=== PATIENT | female | born 1965 | race Caucasian/White ===

== ENCOUNTER 2017-12-04 13:32 | Inpatient (IN) | payer OTHER ==
[2017-12-04] VITALS (9 sets, daily range): BP systolic 134–170; BP diastolic 83–100
[~2017-12-04] VITALS: Ht 165.1 cm; Wt 88.0 kg
[2017-12-04 14:28] LABS: ABSOLUTE BASOPHIL COUNT 0 /CUMM (0.0-0.2); ABSOLUTE EOSINOPHIL COUNT 0 /CUMM (0.0-0.7); ABSOLUTE GRANULOCYTE CT 4.5 /CUMM (1.4-6.5); ABSOLUTE LYMPH COUNT 0.7 /CUMM (1.2-3.4); ABSOLUTE MONOCYTE COUNT 0.3 /CUMM (0.10-0.60); BASOPHIL % 0.3 % (0.0-2.0); EOSINOPHIL % 0.1 % (0-5); GRANULOCYTE % 82.3 % (42.2-75.2); HEMATOCRIT 45.4 % (37-47); MEAN CORPUSCULAR HGB 29.6 PG (27.0-31.0); MEAN CORPUSCULAR HGB CONC 32.9 G/DL (33.0-37.0); MEAN PLATELET VOLUME 9.5 FL (7.4-10.4); RBC DISTRIBUTION WIDTH 17.6 % (11.5-14.5); RED BLOOD CELL CT 5.05 /CUMM (4.20-5.40); WHITE BLOOD CELL COUNT 5.5 /CUMM (4.8-10.8)
[2017-12-04 14:46] LABS: PLATELET COUNT 104 /CUMM (130-400)
--- NOTE | 2017-12-04 15:01 | ED PSYCHIATRIC COMPLAINT ---
History of Present Illness General Chief Complaint: ETOH/Drug Related Complaint Stated Complaint: SENT BY [address] FOR ALCOHOL DETOX Source: patient Exam Limitations: no limitations Vital Signs & Intake/Output Vital Signs & Intake/Output Vital Signs Date Time Temp Pulse Resp B/P B/P Pulse O2 O2 Flow FiO2 Mean Ox Delivery Rate 12/04 2110 98.2 137 16 154/83 /2109 98.2 137 16 154/83 94 Room Air Room Air 12/04 1950 98.2 125 18 149/93 / 1950 98.1 128 18 149/93 96 Room Air Room Air 12/04 1931 98.2 128 18 159/100 04/ 1929 98.0 128 18 159/100 95 Room Air Room Air 12/04 1857 131 04/06 1836 98.2 158 18 139/86 04/ 1834 98.2 158 18 139/86 04/06 1819 97.5 158 18 139/86 95 04/06 1635 97.9 126 18 149/96 97 Room Air Room Air 12/04 1633 97.9 126 18 149/96 04/ 1530 98.8 122 20 134/94 04/06 1527 122 22 134/94 95 Room Air Room Air 04/ 1423 99.2 134 20 170/100 04/06 1405 99.2 130 20 151/108 97 Room Air Allergies Coded Allergies: No Known Allergies (12/04/17) Reconcile Medications Amlodipine Besylate 5 MG TABLET 1 TAB PO DAILY HEART (Reported) Triage Note: PT TO ED FOR ETOH DETOX, SUPPOSED TO GO TO [facility]. LAST DRINK YESTERDAY AT 2100 "DRANK A 5TH OF VODKA FROM [id number]" DENIES HX OF ETOH WITHDRAWAL SEIZURES. LAST ETOH DETOX IN MARCH OF 2017 AT [facility]. PT REPORTS +NAUSEA AND HEADACHE. MANUAL BP 170/100 IN TRIAGE. +TREMULOUS IN TRIAGE. Triage Nurses Notes Reviewed? yes HPI: Patient presents for evaluation of alcohol withdrawal symptoms. Patient states that she was trying to get into a residential detox program but was referred to the emergency department for acute withdrawal symptoms. Patient states she stopped drinking alcohol yesterday (she generally drinks 1 pint of vodka daily). She is currently feeling very shaky and a bit anxious. Last detox was last March. She states since then she has been through a divorce and the loss of her daughter so she began drinking again. She denies withdrawal seizures cigarette smoking or drug abuse. (Vesta CASTELLANO,Jose Antonio Cantu) Past History Travel History Traveled to [place] past 21 day No Medical History Neurological: NONE EENT: NONE Cardiovascular: hypertension Respiratory: NONE Gastrointestinal: NONE Hepatic: NONE Renal: NONE Musculoskeletal: NONE Psychiatric: alcohol dependence Endocrine: NONE Psychosocial History What is your primary language [place] Tobacco Use: Quit >30 days ago ETOH Use: alcoholic (Vesta CASTELLANO,Jose Antonio Cantu) Medical History Any Pertinent Medical History? see below for history Surgical History Surgical History: non-contributory Family History Hx Contributory? No (Ochoa Bonilla MD) Review of Systems Review of Systems Constitutional: Denies: see HPI. (Ochoa Bonilla MD) Physical Exam Physical Exam General Appearance: SEE BELOW Neurological/Psychiatric: SEE BELOW Comments: General: Alert, calm, cooperative Head: Normocephalic, atraumatic Eyes: Normal inspection, no nystagmus, EOMI Ears: Normal inspection Nose: Normal inspection Throat: Moist mucosa Neck: Supple, no goiter Heart: Regular rate and rhythm, no murmurs rubs or gallops Lungs: Clear to auscultation bilaterally with good air entry Abdomen: Soft nontender nondistended, normal bowel sounds Chest: Nontender Extremities: Normal range of motion grossly, moderate tremors present, no cyanosis clubbing or edema of the upper extremities Neurologic: cranial nerves II through XII grossly intact, speech clear, gait normal Psychiatric: No apparent delusions or hallucinations, no pressured speech or thought blocking (Jose Antonio Lemons MD) SAD PERSONS Done? patient not suicidal (Chad CASTELLANO,Ochoa Vick) Progress Differential Diagnosis: drug withdrawal, aLCOHOL WITHDRAWAL, ELECTROLYTE ABNORMALITY, ACIDOSIS, DEHYDRATION Plan of Care: Orders Procedure Date/time Status Regular Diet 12/05 B Active Patient Data 12/04 210 Active Misc Message 12/04 2006 Active ED Holding Orders 12/04 2006 Active Admit to inpatient 12/04 2006 Active Vital Signs 12/04 2006 Active Code Status 12/04 2006 Active Pathway - chart 12/04 1820 Active CIWA 12/04 1820 Active Intake & Output 12/04 1527 Active URINE DRUG SCREEN FOR ER ONLY 12/04 1509 Complete URINALYSIS 12/04 1412 Complete ETHANOL 12/04 1412 Complete COMPREHENSIVE METABOLIC PANEL 12/04 1412 Complete CBC WITHOUT DIFFERENTIAL 12/04 141 Complete Current Medications Sig/Antonia Start time Last Medication Dose Stop Time Status Admin Lorazepam 2 MG Q2P PRN 12/04 1829 AC (Ativan) Lorazepam 1 MG Q2P PRN 12/04 1829 AC (Ativan) Laboratory Tests 12/04/17 1824: Urine Opiates Screen < 100, Methadone Screen < 40, Barbiturate Screen < 60, Ur Phencyclidine Scrn < 6.00, Amphetamines Screen < 100, U Benzodiazepines Scrn < 85, Urine Cocaine Screen < 50, Urine Cannabis Screen < 5.00, Urine Color YEL, Urine Clarity CLEAR, Urine pH 7.0, Ur Specific [place] 1.010, Urine Protein NEG, Urine Ketones 15 H, Urine Nitrite NEG, Urine Bilirubin NEG, Urine Urobilinogen 0.2, Ur Leukocyte Esterase NEG, Ur Microscopic SEDIMENT EXAMINED, Urine RBC 3-5, Urine WBC RARE, Ur Epithelial Cells MOD H, Urine Hemoglobin TRACE-INTACT, Urine Glucose NEG 12/04/17 1420: Anion Gap 24 H, Estimated GFR > 60, BUN/Creatinine Ratio 14.0, Glucose 134 H, Calcium 10.1, Total Bilirubin 1.5 H, AST 67 H, ALT 51, Alkaline Phosphatase 89 , Total Protein 8.5 H, Albumin 5.2 H, Globulin 3.3, Albumin/Globulin Ratio 1.6 , CBC w Diff NO MAN DIFF REQ, RBC 5.05, MCV 90.0, MCH 29.6, MCHC 32.9 L, RDW 17.6 H, MPV 9.5, Gran % 82.3 H, Lymphocytes % 12.7 L, Monocytes % 4.6, Eosinophils % 0.1, Basophils % 0.3, Absolute Granulocytes 4.5, Absolute Lymphocytes 0.7 L, Absolute Monocytes 0.3, Absolute Eosinophils 0, Absolute Basophils 0, Serum Alcohol 51.0 Comments: 12/04/2017 6:31:01 PM I have updated Sabina on her test results and we are awaiting insurance authorization. Fortunately she has become more tachycardic since her arrival despite Ativan. The patient herself however states that she feels much better with less shaking and an improved appetite (she ate meal here in the emergency department and commented it was the first real meal she's had in a while). Patient appears to be in a sinus tachycardia on the monitor although I have also entertained the possibility of an SVT or rapid atrial fibrillation with a 2:1 block. I have ordered another liter of fluid and 2 more milligrams of Ativan and if the patient's heart rate does not respond I will consider adenosine. 12/04/2017 7:41:27 PM Ap's heart rate has responded to IV Ativan and IV fluids. (Vesta CASTELLANO,Jose Antonio Cantu) Departure Departure Disposition: STILL A PATIENT Condition: Stable Clinical Impression Primary Impression: Alcohol withdrawal syndrome Qualifiers: Complication of substance-induced condition: uncomplicated Qualified Code: F10.230 - Alcohol dependence with withdrawal, uncomplicated Referrals: Patient Has No Primary Care Dr (PCP/Family) Departure Forms: Customer Survey General Discharge Information Admission Note Spoke With: Flaquita Ledezma MD Documentation of Exam: Documentation of any treatments & extenuating circumstances including Concerns Regarding Discharge (functional status, medication knowledge or non-compliance, living conditions, etc.) that warrant an admission rather than observation: pt presents in acute alcohol withdrawal. Her alcohol withdrawal places her at high risk of seizures and delirium tremens and . She has also been persistently tachycardic and hypertensive making her very poor candidate for outpatient management. She likely return and worsen her condition. She requires IV Ativan and close monitoring of vital signs (including continuous cardiac monitoring) and her overall clinical condition. Patient's Ativan dosage should be adjusted according to her clinical condition vital signs and CIWA score. She will be at risk of alcohol withdrawal seizures or delirium tremens in the next 3-5 days. She will require a multi-day hospitalization. (Vesta CASTELLANO,Jose Antonio Cantu) Departure Comments pt cleared by case management for admission. (Chad CASTELLANO,Ochoa Vick) Critical Care Note Critical Care Note Critical Care Time: 30-74 min (Jose Antonio Lemons MD)
[2017-12-04] MEDS ORDERED: AMLODIPINE BESYL5 M1 PO (15:11)
--- NOTE | 2017-12-04 22:12 | History & Physical ---
Jing Helton 12/04/17 2211: General Information and HPI MD Statement: I have seen and personally examined LUCI SALVADOR and documented this H&P. The patient is a 52 year old F who presented with a patient stated chief complaint of [ requesting alcohol detox]. Source of Information: patient Exam Limitations: no limitations History of Present Illness: 52-year-old female with a past medical history of hypertension, alcohol dependence presents to the ED after she was sent to [facility] for alcohol detox. According to the patient she has been sober since her last detox in March 2017 for almost 4 months stating that around [place] time she relapsed. She states that she has had issues with her ex- as well as her daughter which is why she became more anxious and depressed utilizing alcohol to help her sleep. She states she drinks about a pint of vodka about 4-5 nights every week. She states that her last drink was yesterday. She also endorses having no heating in her house and that she currently sold her house and is moving to a smaller apartment. She states it was not until this morning when she when she called [facility] requesting detoxification and was advised to go to the ER. Patient endorses shaking and very bad tremors as well as nausea to the point that she was not able to keep anything down since yesterday. She denies any hallucinations. She denies any past history of alcohol withdrawal seizures, ICU admissions, or having ended up getting intubated. 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 She denies any suicidal ideation or homicidal ideation however requests to see a psychiatrist. She denies any other recreational drug use. Of note she states she has never really smoked except maybe as a teenager. The past 6 months have been emotionally stressful for the patient given that her ex- has moved out together with their daughter. She has also sold her house, and is moving into a new apartment. Allergies/Medications Allergies: Coded Allergies: No Known Allergies (12/04/17) Home Med list Amlodipine Besylate 5 MG TABLET 1 TAB PO DAILY HEART (Reported) Compliance With Home Meds: UNKNOWN Past History Travel History Traveled to [place] past 21 day No Medical History Neurological: NONE EENT: NONE Cardiovascular: hypertension Respiratory: NONE Gastrointestinal: NONE Hepatic: NONE Renal: NONE Musculoskeletal: NONE Psychiatric: alcohol dependence Endocrine: NONE Surgical History Surgical History: non-contributory, (12 years ago) Past Family/Social History Family History Relations & Conditions if any MOTHER FH: aortic aneurysm FATHER FH: hypercholesterolemia Psychosocial History Where do you live? Home Who Do You Live With? self Smoking Status: Former Smoker ETOH Use: heavy use, alcoholic Illicit Drug Use: denies illicit drug use Functional Ability ADLs Independent: dressing, eating, toileting, bathing. Ambulation: independent IADLs Independent: shopping, housework, finances, food prep, telephone, transportation , medication admin. 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 Denies: fever, malaise, weakness. EENTM: Denies: visual changes. Cardiovascular: Denies: chest pain, edema, orthopena, palpitations, syncope. Respiratory: Denies: cough, orthopnea, short of breath, wheezing. GI: Denies: abdominal pain, constipation, diarrhea, nausea, vomiting. Genitourinary: Reports: no symptoms. Musculoskeletal: Denies: back pain. Neurological/Psychological: Reports: tremors. Denies: headache, numbness, tingling, weakness. Exam & Diagnostic Data Last 24 Hrs of Vital Signs/I&O Vital Signs Date Time Temp Pulse Resp B/P B/P Pulse O2 O2 Flow FiO2 Mean Ox Delivery Rate 12/05 0203 109 18 153/99 12/05 0151 98.4 109 20 153/99 12/05 0030 93 12/05 0019 128 18 159/99 12/04 2356 128 18 159/99 12/04 2352 128 18 159/99 96 Room Air 12/04 2233 98.0 136 18 150/94 12/04 2232 98.0 126 18 150/94 97 Room Air Room Air 12/041 98.2 137 16 154/83 12/040 98.2 137 16 154/83 94 Room Air Room Air 12/04 1950 98.2 125 18 149/93 12/04 1950 98.1 128 18 149/93 96 Room Air Room Air 12/04 1931 98.2 128 18 159/100 12/04 1929 98.0 128 18 159/100 95 Room Air Room Air 12/04 1857 131 12/04 1836 98.2 158 18 139/86 12/04 1834 98.2 158 18 139/86 12/04 1819 97.5 158 18 139/86 95 12/04 1635 97.9 126 18 149/96 97 Room Air Room Air 12/04 1633 97.9 126 18 149/96 12/04 1530 98.8 122 20 134/94 12/04 1527 122 22 134/94 95 Room Air Room Air 12/04 1423 99.2 134 20 170/100 12/04 1405 99.2 130 20 151/108 97 Room Air Intake & Output 12/05 0800 04 0000 12/04 1600 Intake Total 1000 1000 Output Total Balance 1000 1000 Intake, IV 1000 1000 Patient 150 lb Weight Weight Reported by Patient Measurement Method Physical Exam General Appearance Alert, Oriented X3, Cooperative, No Acute Distress Skin No Rashes Sepsis Skin Exam (color): Flushed HEENT Atraumatic, PERRLA, EOMI, dry mucous membranes Neck Supple, No JVD, No thryomegaly, No LAD Cardiovascular Normal S1, Normal S2, No Murmurs, sinus tachycardia Lungs Clear to Auscultation, Normal Air Movement Abdomen Normal Bowel Sounds, Soft, No Tenderness Neurological Normal Speech, Strength at 5/5 X4 Ext, tremors - slight Extremities No Edema, Normal Pulses Vascular Normal Pulses, Pulses Symmetrical Last 24 Hrs of Labs/Juan: Laboratory Tests 12/04/17 1824: Urine Opiates Screen < 100, Methadone Screen < 40, Barbiturate Screen < 60, Ur Phencyclidine Scrn < 6.00, Amphetamines Screen < 100, U Benzodiazepines Scrn < 85, Urine Cocaine Screen < 50, Urine Cannabis Screen < 5.00, Urine Color YEL, Urine Clarity CLEAR, Urine pH 7.0, Ur Specific [place] 1.010, Urine Protein NEG, Urine Ketones 15 H, Urine Nitrite NEG, Urine Bilirubin NEG, Urine Urobilinogen 0.2, Ur Leukocyte Esterase NEG, Ur Microscopic SEDIMENT EXAMINED, Urine RBC 3-5, Urine WBC RARE, Ur Epithelial Cells MOD H, Urine Hemoglobin TRACE-INTACT, Urine Glucose NEG 12/04/17 1420: Anion Gap 24 H, Estimated GFR > 60, BUN/Creatinine Ratio 14.0, Glucose 134 H, Calcium 10.1, Phosphorus 2.4 L, Magnesium 1.0 L, Total Bilirubin 1.5 H, Direct Bilirubin 0.6 H, AST 67 H, ALT 51, Alkaline Phosphatase 89, Total Protein 8.5 H, Albumin 5.2 H, Globulin 3.3, Albumin/Globulin Ratio 1.6, CBC w Diff NO MAN DIFF REQ, RBC 5.05, MCV 90.0, MCH 29.6, MCHC 32.9 L, RDW 17.6 H, MPV 9.5, Gran % 82.3 H, Lymphocytes % 12.7 L, Monocytes % 4.6, Eosinophils % 0.1, Basophils % 0.3, Absolute Granulocytes 4.5, Absolute Lymphocytes 0.7 L, Absolute Monocytes 0.3, Absolute Eosinophils 0, Absolute Basophils 0, Serum Alcohol 51.0 Assessment/Plan Assessment: 52-year-old female with a past medical history hypertension and alcohol dependence who presented to the ER from [facility] for acute withdrawal symptoms. Apparently patient stopped drinking alcohol yesterday she usually drinks about up and walk on a daily basis. Her last detox was in March 2017. Vitals at the time of admission blood pressure 150/94, respiratory rate of 18, pulse 126, afebrile saturating 97% on room air. Labs pertinent for normal white blood cell count of 5500, H&H 14.9/45.4, MCV of 90, platelet count of 104,000. Serum chemistries pertinent for sodium of 138, potassium of 3.0, bicarb of 21, anion gap of 24, BUN 7 with a creatinine of 0.5 and serum glucose of 134. Total bili was 1.5. LFTs pertinent for AST/ALT of 67 /51, alk phos of 89. U tox pertinent for serum alcohol of 51. UA pertinent for ketonuria, moderate amount of epithelial cells. In the ER patient received lorazepam 2 mg IV 4 as he CIWA was 19; Zofran 4 mg IV 1, K-Dur 40 mEq once p.o. and normal saline 1000 mL bolused IV 1. Admit patient to general medicine for alcohol withdrawal. #Alcohol detoxification Ativan 2 mg p.o. every 6 and Ativan per ciwa Psych and social work consult in a.m. Maintained on banana bag for now and switch to p.o. thiamine, folic acid and multivitamin within the next 24-48 hours #Sinus tachycardia Will start on clonidine 0.1 mg twice daily to control tachycardia and hypertension related to alcohol withdrawal #Hypertension Continue on amlodipine 5 mg daily #Thrombocytopenia Most likely secondary to alcoholism #Hypokalemia Replete with 40 mg of K-Caroline Follow potassium in a.m. #Hypomagnesemia Most likely secondary to alcoholism Replete with 2 g of IV mag sulfate #Hypophosphatemia Secondary to alcoholism Replete phosphate and follow-up labs in a.m. -Diet Heart healthy DVT prophylaxis On Alps given thrombocytopenia CODE STATUS Full As Ranked By This Provider Problem List: 1. Alcohol withdrawal syndrome Qualifiers Complication of substance-induced condition: uncomplicated Qualified Code: F10.230 - Alcohol dependence with withdrawal, uncomplicated Core Measures/Misc (05/17) Acute Coronary Syndrome ACS Diagnosis: No Congestive Heart Failure Congestive Heart Failure Diagnosis No Cerebrovascular Accident CVA/TIA Diagnosis: No VTE (View Protocol) VTE Risk Factors Age>40 No Mechanical VTE Prophylaxis d/t N/A MechProphylax Ordered No VTE Pharm Prophylaxis d/t Platelets below ref range Sepsis (View protocol) Sepsis Present: No Resident Review Statement Resident Statement: ADMITTED BY RESIDENT Flaquita Ledezma 12/05/17 0547: Attending MD Review Statement Attending Statement Attending MD Statement: examined this patient, discuss w/resident/PA/NETWORK RELAY TESTER, agreed w/resident/PA/NETWORK RELAY TESTER, reviewed EMR data (avail), reviewed images, amended to note Attending Assessment/Plan: CC: Alcohol detox PMH: HTN, alcoholism Patient came to ER requesting alcohol detox. She has going through some marital trouble, from for now, drinks fifth of vodka 4-5 days per week , family suggested her detox, she went to [facility] from where she was referred to ER for detox. She had several detox in the past, no history of withdrawal seizure, no history of severe DTs, never hospitalized in ICU. Last detox March 2017 in [facility]. Relapsed Christmastime again. Complete ROS unremarkable Vitals: Afebrile, tachycardic up to 150s in ER that gradually improved, RR 18, blood pressure 149/96, saturating 97% on room air. On exam: A O 3, cooperative, no acute distress, neck supple, JVD normal, no lymphadenopathy, mild diaphoresis, mild tremors, not hallucinating, mucosa moist , no focal neurological deficit, no dependent edema, no obvious skin rashes or inflammation CVS: S1-S2, RRR. RS: Clear to auscultate bilaterally. Abdomen: Soft , NT, ND, bowel sounds present. Assessment and plan 52-year-old female with past medical history significant for hypertension, depression presented in ER for all called detox. Complete examination unremarkable, she was significantly tachycardic in ER. ECG showed sinus tachycardia. Patient states that she was tachycardic in the previous detox as well. Currently not on any medications for the same. In ER her CIWA scores were up to 19, now gradually improving with Ativan. We will start clonidine for her tachycardia and hypertension along with Ativan and other supportive care. If persistently remains tachycardic even with treatment then consider telemetry floor. + Alcohol detox + Sinus tachycardia - Admit to General medicine - Continue scheduled Ativan PO 2 milligram every - Continue when necessary Ativan according to CINY protocol - High-dose thiamine - PO folic acid - Check magnesium and phosphorus, today and tomorrow, replace if low - Start clonidine, restart amlodipine from tomorrow if blood pressure stable - DVT prophylaxis - Adequate pain control - Psych consult - house worker general consult
[2017-12-05] VITALS (9 sets, daily range): BP systolic 130–153; BP diastolic 80–99
--- NOTE | 2017-12-05 05:39 | PN- Housestaff ---
Subjective Follow-up For: - Alcohol detox - HTN - Sinus tachycardia Objective Last 24 Hrs of Vital Signs/I&O Vital Signs Date Time Temp Pulse Resp B/P B/P Pulse O2 O2 Flow FiO2 Mean Ox Delivery Rate 12/05 0243 98.1 91 20 150/98 97 Room Air 04 0203 109 18 153/99 04/07 0151 98.4 109 20 153/99 04/07 0030 93 04/07 0019 128 18 159/99 04/ 2356 128 18 159/99 04/06 2352 128 18 159/99 96 Room Air 04/ 2233 98.0 136 18 150/94 04/ 2232 98.0 126 18 150/94 97 Room Air Room Air 12/04 2111 98.2 137 16 154/83 04/06 2110 98.2 137 16 154/83 94 Room Air Room Air 12/04 1950 98.2 125 18 149/93 04/ 1950 98.1 128 18 149/93 96 Room Air Room Air / 1931 98.2 128 18 159/100 04/ 1929 98.0 128 18 159/100 95 Room Air Room Air 04/ 1857 131 04/ 1836 98.2 158 18 139/86 04/06 1834 98.2 158 18 139/86 04/06 1819 97.5 158 18 139/86 95 04/06 1635 97.9 126 18 149/96 97 Room Air Room Air 04/ 1633 97.9 126 18 149/96 04/06 1530 98.8 122 20 134/94 04/06 1527 122 22 134/94 95 Room Air Room Air / 1423 99.2 134 20 170/100 04/06 1405 99.2 130 20 151/108 97 Room Air Intake & Output 12/05 0800 04/07 0000 06 1600 Intake Total 1000 1000 Output Total Balance 1000 1000 Intake, IV 1000 1000 Patient 150 lb Weight Weight Reported by Patient Measurement Method Current Medications: Current Medications Sig/Antonia Start time Last Medication Dose Route Stop Time Status Admin Amlodipine Besylate 5 MG DAILY 12/05 1000 AC PO Amlodipine Besylate 0 .STK-MED ONE 12/04 1845 DC PO Amlodipine Besylate 5 MG ONCE ONE 12/04 1830 DC 12/04 PO 12/04 183 183 Clonidine 0 .STK-MED ONE 12/05 0024 DC PO Clonidine 0.1 MG BID 12/05 0015 AC 12/05 PO 0019 Cyanocobalamin/ 1 BAG DAILY 12/05 1000 AC Thiamine/Pyridoxine IV 12/07 1759 Dextrose/Water 1,000 ML Folic Acid 1 MG DAILY 12/05 1000 DC PO 12/07 1001 Lorazepam 2 MG Q6 12/05 0600 AC PO Lorazepam 2 MG Q6 12/04 2359 DC 12/04 PO 12/05 0001 2347 Lorazepam 0 .STK-MED ONE 12/04 2342 DC PO Lorazepam 0 Q1P PRN 12/04 2315 AC IV Lorazepam 0 .STK-MED ONE 12/04 1950 DC .ROUTE Lorazepam 2 MG ONE ONE 12/04 1945 DC 12/04 IV 12/04 1946 1948 Lorazepam 2 MG ONE ONE 12/04 1830 DC 04 IV 12/04 1831 1836 Lorazepam 2 MG Q2P PRN 12/04 1830 DC IV Lorazepam 1 MG Q2P PRN 12/04 1830 DC IV Lorazepam 0 .STK-MED ONE 12/04 1827 DC .ROUTE Lorazepam 0 .STK-MED ONE 12/04 1519 DC PO Lorazepam 0 .STK-MED ONE 12/04 1519 DC .ROUTE Lorazepam 2 MG ONE ONE 12/04 1515 DC 04 IV 12/04 1516 1526 Lorazepam 2 MG ONCE ONE 12/04 1515 DC 12/04 PO 12/04 1516 1526 Magnesium Sulfate 1 GM Q2H 12/05 0245 AC Dextrose/Water 100 ML IV 12/05 0644 Multivitamins 1 TAB DAILY 12/05 1000 DC PO Ondansetron HCl 4 MG Q6P PRN 12/04 2345 AC IV Ondansetron HCl 0 .STK-MED ONE 12/04 1518 DC .ROUTE Ondansetron HCl 4 MG ONCE ONE 12/04 1515 DC 04 IV 12/04 1516 1526 Phosphate 250 MG PC AND AT BEDTIME 12/05 0245 AC 12/05 PO 0422 Potassium Chloride 40 MEQ ONCE ONE 12/04 2345 CAN PO 12/04 2346 Potassium Chloride 40 MEQ ONCE ONE 12/04 2345 DC PO 12/04 2346 Potassium Chloride 20 MEQ ONCE ONE 12/04 1645 DC 04 PO 12/04 1646 1652 Potassium Chloride 0 .STK-MED ONE 12/04 1640 DC PO Potassium Chloride 0 .STK-MED ONE 12/04 1518 DC PO Potassium Chloride 40 MEQ ONCE ONE 12/04 1515 DC PO 12/04 1516 Sodium Chloride 1,000 ML BOLUS ONE 12/04 1500 DC 12/04 IV 12/04 1559 1526 Thiamine HCl 100 MG DAILY 12/05 1000 CAN PO 12/07 1001 Last 24 Hrs of Lab/Juan Results Last 24 Hrs of Labs/Mics: Laboratory Tests 12/04/17 1824: Urine Opiates Screen < 100, Methadone Screen < 40, Barbiturate Screen < 60, Ur Phencyclidine Scrn < 6.00, Amphetamines Screen < 100, U Benzodiazepines Scrn < 85, Urine Cocaine Screen < 50, Urine Cannabis Screen < 5.00, Urine Color YEL, Urine Clarity CLEAR, Urine pH 7.0, Ur Specific [place] 1.010, Urine Protein NEG, Urine Ketones 15 H, Urine Nitrite NEG, Urine Bilirubin NEG, Urine Urobilinogen 0.2, Ur Leukocyte Esterase NEG, Ur Microscopic SEDIMENT EXAMINED, Urine RBC 3-5, Urine WBC RARE, Ur Epithelial Cells MOD H, Urine Hemoglobin TRACE-INTACT, Urine Glucose NEG 12/04/17 1420: Anion Gap 24 H, Estimated GFR > 60, BUN/Creatinine Ratio 14.0, Glucose 134 H, Calcium 10.1, Phosphorus 2.4 L, Magnesium 1.0 L, Total Bilirubin 1.5 H, Direct Bilirubin 0.6 H, AST 67 H, ALT 51, Alkaline Phosphatase 89, Total Protein 8.5 H, Albumin 5.2 H, Globulin 3.3, Albumin/Globulin Ratio 1.6, CBC w Diff NO MAN DIFF REQ, RBC 5.05, MCV 90.0, MCH 29.6, MCHC 32.9 L, RDW 17.6 H, MPV 9.5, Gran % 82.3 H, Lymphocytes % 12.7 L, Monocytes % 4.6, Eosinophils % 0.1, Basophils % 0.3, Absolute Granulocytes 4.5, Absolute Lymphocytes 0.7 L, Absolute Monocytes 0.3, Absolute Eosinophils 0, Absolute Basophils 0, Serum Alcohol 51.0 Assessment/Plan Assessment: 52-year-old female with a past medical history hypertension and alcohol dependence who presented [facility] the [facility] for acute withdrawal symptoms. Apparently patient stopped drinking alcohol yesterday she usually drinks about up and walk on a daily basis. Her last detox was in March 2017. Vitals at the time of admission blood pressure 150/94, respiratory rate of 18, pulse 126, afebrile saturating 97% on room air. Labs pertinent for normal white blood cell count of 5500, H&H 14.9/45.4, MCV of 90, platelet count of 104,000. Serum chemistries pertinent for sodium of 138, potassium of 3.0, bicarb of 21, anion gap of 24, BUN 7 with a creatinine of 0.5 and serum glucose of 134. Total bili was 1.5. LFTs pertinent for AST/ALT of 67 /51, alk phos of 89. U tox pertinent for serum alcohol of 51. UA pertinent for ketonuria, moderate amount of epithelial cells. In the ER patient received lorazepam 2 mg IV 4 as he CIWA was 19; Zofran 4 mg IV 1, K-Dur 40 mEq once p.o. and normal saline 1000 mL bolused IV 1. Admit patient to general medicine for alcohol withdrawal. #Alcohol detoxification Ativan 2 mg p.o. every 6 and Ativan per ciwa Psych and social work consult in a.m. Maintained on banana bag for now and switch to p.o. thiamine, folic acid and multivitamin within the next 24-48 hours #Sinus tachycardia Will start on clonidine 0.1 mg twice daily to control tachycardia and hypertension related to alcohol withdrawal #Hypertension Continue on amlodipine 5 mg daily #Thrombocytopenia Most likely secondary to alcoholism #Hypokalemia Replete with 40 mg of K-Caroline Follow potassium in a.m. #Hypomagnesemia Most likely secondary to alcoholism Replete with 2 g of IV mag sulfate #Hypophosphatemia Secondary to alcoholism Replete phosphate and follow-up labs in a.m. -Diet Heart healthy DVT prophylaxis On Alps given thrombocytopenia CODE STATUS Full Problem List: 1. Alcohol withdrawal syndrome
--- NOTE | 2017-12-05 05:48 | Admission Certification ---
Admission Certification Certification Statement - As attending physician, I certify that at the time of - admission, based on clinical presentation, severity of - symptoms, need for further diagnostic testing and - therapeutic interventions, and risk of adverse outcomes - without in-hospital treatment, in my clinical assessment, - this patient requires an acute hospital stay for a minimum - of two nights or longer. I have also considered psychsocial - factors such as support system, advanced age, financial - issues, cognitive issues, and failed out-patient treatments, - past re-admission history, safety of patient, and lack of - compliance as applicable. Specific rationale supporting this admission is: alcohol detox
[2017-12-05 08:51] LABS: PT 11.7 SEC (9.4-12.5)
[2017-12-05 09:08] LABS: ABSOLUTE BASOPHIL COUNT 0 /CUMM (0.0-0.2); ABSOLUTE EOSINOPHIL COUNT 0 /CUMM (0.0-0.7); ABSOLUTE GRANULOCYTE CT 1.4 /CUMM (1.4-6.5); ABSOLUTE LYMPH COUNT 0.9 /CUMM (1.2-3.4); ABSOLUTE MONOCYTE COUNT 0.2 /CUMM (0.10-0.60); BASOPHIL % 0.4 % (0.0-2.0); EOSINOPHIL % 0.9 % (0-5); GRANULOCYTE % 55.4 % (42.2-75.2); MEAN CORPUSCULAR HGB 31.1 PG (27.0-31.0); MEAN CORPUSCULAR HGB CONC 34.7 G/DL (33.0-37.0); MEAN CORPUSCULAR VOLUME 89.6 FL (81.0-99.0); MEAN PLATELET VOLUME 10.2 FL (7.4-10.4); RBC DISTRIBUTION WIDTH 17.8 % (11.5-14.5); RED BLOOD CELL CT 4.18 /CUMM (4.20-5.40)
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
[2017-12-05 13:10] LABS: HEMATOCRIT 37.5 % (37-47); WHITE BLOOD CELL COUNT 2.6 /CUMM (4.8-10.8)
[2017-12-05 13:11] LABS: PLATELET COUNT 53 /CUMM (130-400)
--- NOTE | 2017-12-05 13:41 | PN- Housestaff ---
Samson Gautam 12/05/17 1324: Subjective Follow-up For: Alcohol detoxification Complaints: no complaints Subjective: Patient seen and examined at bedside. Sitting sitting comfortably in bed. CIWA scores have been 0-3 overnight. But 2 mg when necessary Ativan overnight. Heart rate better this morning. Review of Systems Constitutional: Reports: no symptoms. EENTM: Reports: no symptoms. Cardiovascular: Reports: no symptoms. Respiratory: Reports: no symptoms. Gastrointestinal: Reports: no symptoms. Genitourinary: Reports: no symptoms. Objective Last 24 Hrs of Vital Signs/I&O Vital Signs Date Time Temp Pulse Resp B/P B/P Pulse O2 O2 Flow FiO2 Mean Ox Delivery Rate 12/05 0954 98.4 90 18 138/96 97 Room Air 12/05 0619 98.6 91 20 138/90 97 Room Air / 0600 98.6 91 20 138/90 04/ 0300 98.1 91 20 150/98 04/ 0300 97 Room Air 12/05 0243 98.1 91 20 150/98 97 Room Air 12/05 0203 109 18 153/99 04/07 0151 98.4 109 20 153/99 04/07 0030 93 04/07 0019 128 18 159/99 04/06 2356 128 18 159/99 04/06 2352 128 18 159/99 96 Room Air 04/06 2233 98.0 136 18 150/94 04/06 2232 98.0 126 18 150/94 97 Room Air Room Air 04/06 2111 98.2 137 16 154/83 04/06 2110 98.2 137 16 154/83 94 Room Air Room Air 04/ 1950 98.2 125 18 149/93 04/06 1950 98.1 128 18 149/93 96 Room Air Room Air 04/06 1931 98.2 128 18 159/100 04/06 1929 98.0 128 18 159/100 95 Room Air Room Air 04/ 1857 131 04/06 1836 98.2 158 18 139/86 04/06 1834 98.2 158 18 139/86 04/06 1819 97.5 158 18 139/86 95 04/06 1635 97.9 126 18 149/96 97 Room Air Room Air 04/06 1633 97.9 126 18 149/96 04/06 1530 98.8 122 20 134/94 04 1527 122 22 134/94 95 Room Air Room Air 12/04 1423 99.2 134 20 170/100 04/ 1405 99.2 130 20 151/108 97 Room Air Intake & Output 12/05 1600 12/05 0800 12/05 0000 Intake Total 720 1000 Output Total Balance 720 1000 Intake, IV 220 1000 Intake, Oral 500 Number 0 Bowel Movements Patient 88.025 kg Weight Weight Bed scale Measurement Method Physical Exam General Appearance: Alert, Oriented X3, Mild Distress Skin: No Rashes, No Breakdown Skin Temp/Moisture Exam: Warm/Dry HEENT: Atraumatic, PERRLA Neck: Supple Lymphatic: Cervical nl Cardiovascular: Regular Rate, Normal S1, Normal S2 Lungs: Clear to Auscultation, Normal Air Movement Abdomen: Normal Bowel Sounds Neurological: Normal Speech, tremors Extremities: No Clubbing, No Cyanosis, No Edema, Normal Pulses Current Medications: Current Medications Sig/Antonia Start time Last Medication Dose Route Stop Time Status Admin Amlodipine Besylate 5 MG DAILY 12/05 1000 AC 12/05 PO 0856 Amlodipine Besylate 0 .STK-MED ONE 12/04 1845 DC PO Amlodipine Besylate 5 MG ONCE ONE 12/04 1830 DC 12/04 PO 12/04 183 1836 Clonidine 0 .STK-MED ONE 12/05 0024 DC PO Clonidine 0.1 MG BID 12/05 0015 DC 12/05 PO 0855 Cyanocobalamin/ 1 BAG DAILY 12/05 1000 AC 12/05 Thiamine/Pyridoxine IV 12/07 1759 1241 Dextrose/Water 1,000 ML Folic Acid 1 MG DAILY 12/05 1000 DC PO 12/07 1001 Lorazepam 2 MG Q6 12/05 0600 AC 12/05 PO 1159 Lorazepam 2 MG Q6 12/04 2359 DC 12/04 PO 12/05 0001 2347 Lorazepam 0 .STK-MED ONE 12/04 2342 DC PO Lorazepam 0 Q1P PRN 12/04 2315 AC IV Lorazepam 0 .STK-MED ONE 12/04 1950 DC .ROUTE Lorazepam 2 MG ONE ONE 12/04 1945 DC 12/04 IV 12/04 194 194 Lorazepam 2 MG ONE ONE 12/04 1830 DC 12/04 IV 12/04 183 183 Lorazepam 2 MG Q2P PRN 12/04 1830 DC IV Lorazepam 1 MG Q2P PRN 12/04 1830 DC IV Lorazepam 0 .STK-MED ONE 12/04 1827 DC .ROUTE Lorazepam 0 .STK-MED ONE 12/04 1519 DC PO Lorazepam 0 .STK-MED ONE 12/04 1519 DC .ROUTE Lorazepam 2 MG ONE ONE 12/04 1515 DC 12/04 IV 12/04 1516 1526 Lorazepam 2 MG ONCE ONE 12/04 1515 DC 12/04 PO 12/04 1516 1526 Magnesium Sulfate 1 GM Q2H 12/05 0245 DC 12/05 Dextrose/Water 100 ML IV 12/05 0644 0602 Multivitamins 1 TAB DAILY 12/05 1000 DC PO Ondansetron HCl 4 MG Q6P PRN 12/04 2345 AC IV Ondansetron HCl 0 .STK-MED ONE 12/04 1518 DC .ROUTE Ondansetron HCl 4 MG ONCE ONE 12/04 1515 DC 12/04 IV 12/04 1516 1526 Phosphate 250 MG PC AND AT BEDTIME 12/05 0245 AC 12/05 PO 0855 Potassium Chloride 40 MEQ ONCE ONE 12/04 2345 CAN PO 12/04 2346 Potassium Chloride 40 MEQ ONCE ONE 12/04 2345 DC PO 12/04 2346 Potassium Chloride 20 MEQ ONCE ONE 12/04 1645 DC 04/ PO 12/04 1646 1652 Potassium Chloride 0 .STK-MED ONE 12/04 1640 DC PO Potassium Chloride 0 .STK-MED ONE 12/04 1518 DC PO Potassium Chloride 40 MEQ ONCE ONE 12/04 1515 DC PO 12/04 1516 Sodium Chloride 1,000 ML BOLUS ONE 12/04 1500 DC 12/04 IV 12/04 1559 1526 Thiamine HCl 100 MG DAILY 12/05 1000 CAN PO 12/07 1001 Last 24 Hrs of Lab/Juan Results Last 24 Hrs of Labs/Mics: Laboratory Tests 12/05/17 0750: Phosphorus 3.7, Magnesium 2.1, PT 11.7, INR 1.07, CBC w Diff NO MAN DIFF REQ, RBC 4.18 L, MCV 89.6, MCH 31.1 H, MCHC 34.7, RDW 17.8 H, MPV 10.2, Gran % 55.4, Lymphocytes % 33.9, Monocytes % 9.4 H, Eosinophils % 0.9, Basophils % 0.4 , Absolute Granulocytes 1.4, Absolute Lymphocytes 0.9 L, Absolute Monocytes 0.2 , Absolute Eosinophils 0, Absolute Basophils 0 12/04/17 1824: Urine Opiates Screen < 100, Methadone Screen < 40, Barbiturate Screen < 60, Ur Phencyclidine Scrn < 6.00, Amphetamines Screen < 100, U Benzodiazepines Scrn < 85, Urine Cocaine Screen < 50, Urine Cannabis Screen < 5.00, Urine Color YEL, Urine Clarity CLEAR, Urine pH 7.0, Ur Specific [place] 1.010, Urine Protein NEG, Urine Ketones 15 H, Urine Nitrite NEG, Urine Bilirubin NEG, Urine Urobilinogen 0.2, Ur Leukocyte Esterase NEG, Ur Microscopic SEDIMENT EXAMINED, Urine RBC 3-5, Urine WBC RARE, Ur Epithelial Cells MOD H, Urine Hemoglobin TRACE-INTACT, Urine Glucose NEG 12/04/17 1420: Anion Gap 24 H, Estimated GFR > 60, BUN/Creatinine Ratio 14.0, Glucose 134 H, Calcium 10.1, Phosphorus 2.4 L, Magnesium 1.0 L, Total Bilirubin 1.5 H, Direct Bilirubin 0.6 H, AST 67 H, ALT 51, Alkaline Phosphatase 89, Total Protein 8.5 H, Albumin 5.2 H, Globulin 3.3, Albumin/Globulin Ratio 1.6, CBC w Diff NO MAN DIFF REQ, RBC 5.05, MCV 90.0, MCH 29.6, MCHC 32.9 L, RDW 17.6 H, MPV 9.5, Gran % 82.3 H, Lymphocytes % 12.7 L, Monocytes % 4.6, Eosinophils % 0.1, Basophils % 0.3, Absolute Granulocytes 4.5, Absolute Lymphocytes 0.7 L, Absolute Monocytes 0.3, Absolute Eosinophils 0, Absolute Basophils 0, Serum Alcohol 51.0 Assessment/Plan Assessment: 52-year-old female with a past medical history hypertension and alcohol dependence who presented to the ER [facility] for acute withdrawal symptoms. Assessment and plan #Alcohol detoxification Ativan 2 mg p.o. every 6 and Ativan per ciwa Was evaluated by psychiatry, plan for outpatient psychotherapy. Social work consult elevated. Continue by mouth multivitamin, thiamine and folate. Melatonin and trazodone at bedtime for sleep disturbance as per psych. #Tachycardia Patient was initially started on clonidine overnight for tachycardia. Clonidine has been discontinued since his heart rate is much better this morning and was likely secondary to withdrawal symptoms. We'll closely monitor heart rate. #Hypertension -Patient was started on clonidine initially for tachycardia and hypertension. It has been discontinued and she has been s restarted on home medication amlodipine 5 mg. Blood pressure well controlled now. Can go up on amlodipine to 10 mg if continues to stay high. #Hypomagnesemia Most likely secondary to alcoholism Repleted with IV magnesium. We'll check BEP tomorrow #Hypophosphatemia Secondary to alcoholism Repleted,We'll check BEP tomorrow -Diet Heart healthy DVT prophylaxis On Alps given thrombocytopenia Problem List: 1. Alcohol withdrawal syndrome Pain Ratin Pain Location: na Pain Goal: Remain pain free Pain Plan: tylenol Tomorrow's Labs & Rationales: cbc low wbc bep hypokalemia Kvng Walsh 12/05/17 1641: Attending MD Review Statement Attending Statement Attending MD Statement: examined this patient, discuss w/resident/PA/OPS ANALYST, agreed w/resident/PA/OPS ANALYST, reviewed EMR data (avail), discussed with nursing, discussed with case mgmt Attending Assessment/Plan: Agree with above assessment and plan. Patient was referred by high [employer] to come to the ER for alcohol detox. Patient's last drink was on . Patient normally drinks vodka. Cont to monitor on CIWA protocol. Hypertension-will DC the clonidine and start the patient on Norvasc. We will go up on the dose as needed.
[2017-12-06] VITALS (8 sets, daily range): BP systolic 124–146; BP diastolic 80–96
--- NOTE | 2017-12-06 08:02 | PN- Housestaff ---
See Addendum Subjective Follow-up For: Alcohol withdrawal Subjective: Patient seen and examined. Resting comfortably. Just a shower. Offers no complaint. They were running 0 to 2, reasonable to go down on Ativan. Review of Systems Constitutional: Reports: see HPI. Objective Last 24 Hrs of Vital Signs/I&O Vital Signs Date Time Temp Pulse Resp B/P B/P Pulse O2 O2 Flow FiO2 Mean Ox Delivery Rate 12/06 0620 98.2 85 18 146/90 96 Room Air 12/06 0600 98.2 85 18 146/90 12/06 0205 98.0 80 18 130/88 97 Room Air 12/06 0200 98.0 80 18 130/80 04/ 0000 98.9 82 18 130/90 12/05 2200 98.9 82 18 130/90 95 Room Air 12/05 1800 99.6 86 20 132/80 96 Room Air 12/05 1418 98.0 94 18 130/80 97 Room Air 12/05 0954 98.4 90 18 138/96 97 Room Air Intake & Output 12/06 1600 12/06 0800 12/06 0000 Intake Total 450 550 Output Total Balance 450 550 Intake, IV 250 Intake, Oral 450 300 Physical Exam General Appearance: Alert, Oriented X3 Cardiovascular: Regular Rate Lungs: Clear to Auscultation Abdomen: Soft Neurological: Normal Speech Current Medications: Current Medications Sig/Antonia Start time Last Medication Dose Route Stop Time Status Admin Amlodipine Besylate 5 MG DAILY 12/05 1000 AC 12/05 PO 0856 Clonidine 0.1 MG BID 12/05 0015 DC 12/05 PO 0855 Cyanocobalamin/ 1 BAG DAILY 12/05 1000 AC 12/05 Thiamine/Pyridoxine IV 12/07 1759 1241 Dextrose/Water 1,000 ML Folic Acid 1 MG DAILY 12/05 1000 DC PO 12/07 1001 Lorazepam 2 MG Q6 12/05 0600 AC 12/06 PO 0528 Lorazepam 0 Q1P PRN 12/04 2315 AC IV Melatonin 5 MG AT BEDTIME PRN 12/05 1900 AC 12/05 PO 204 Multivitamins 1 TAB DAILY 12/05 1000 DC PO Ondansetron HCl 4 MG Q6P PRN 12/04 2345 AC IV Phosphate 250 MG PC AND AT BEDTIME 12/05 0245 AC 12/05 PO 2047 Trazodone HCl 50 MG AT BEDTIME PRN 12/05 1900 CAN PO Last 24 Hrs of Lab/Juan Results Last 24 Hrs of Labs/Mics: Laboratory Tests 12/06/17 0740: Anion Gap 15, Estimated GFR > 60, BUN/Creatinine Ratio 14.0, Phosphorus 4.7 H, Magnesium 1.7, Total Bilirubin 1.8 H, Direct Bilirubin 0.6 H, AST 99 H, ALT 54 H, Alkaline Phosphatase 65, Total Protein 7.6, Albumin 4.5, CBC w Diff NO MAN DIFF REQ, RBC 4.47, MCV 91.2, MCH 30.6, MCHC 33.6, RDW 17.2 H, MPV 10.8 H, Gran % 59.5, Lymphocytes % 33.0, Monocytes % 4.9, Eosinophils % 2.2, Basophils % 0.4, Absolute Granulocytes 2.3, Absolute Lymphocytes 1.3, Absolute Monocytes 0.2 , Absolute Eosinophils 0.1, Absolute Basophils 0 Orders CIWA Score (last 24 hrs): 0 to 2 Assessment/Plan Assessment: 52-year-old female with a past medical history hypertension and alcohol dependence who presented [facility] the [facility] for acute withdrawal symptoms. Patient is currently being treated and evaluated for following #Alcohol detoxification -Ativan decreased to 1.5 q8 and Ativan per ciwa -Continue by mouth multivitamin, thiamine and folate. Was evaluated by psychiatry, plan for outpatient psychotherapy. Social work consult elevated. Melatonin and trazodone at bedtime for sleep disturbance as per psych. #Electrolyte abnormalities Hypokalemia hypomagnesemia and hypophosphatemia likely secondary to alcohol abuse -Continue to monitor and replete -Hypokalemia and hypomagnesemia resolved -Hyperphosphatemia today likely secondary to repletion will discontinue the Neutra-Phos and continue to monitor #Leukopenia and thrombocytopenia Bone marrow suppression in setting of alcohol abuse -Continue to monitor -Avoid DVT prophylaxis with Lovenox will use Alps -Repeat cbc for platelet count @ 12pm #Transaminitis Secondary to alcohol abuse -Continue to monitor -Patient does not have any now right upper quadrant tenderness on if worsens or any symptoms develop. Consider right upper quadrant ultrasound #Tachycardia-resolved Patient was initially started on clonidine overnight for tachycardia. Clonidine has been discontinued since his heart rate is much better this morning and was likely secondary to withdrawal symptoms. -We'll closely monitor heart rate. #Hypertension- Blood pressure well controlled now. Patient was started on clonidine initially for tachycardia and hypertension. It has been discontinued and she has been s restarted on home medication amlodipine 5 mg. -Can go up on amlodipine to 10 mg if continues to stay high. -Diet Heart healthy/DVT prophylaxis On Alps given thrombocytopenia/ Problem List: 1. Alcohol withdrawal syndrome Pain Ratin Pain Location: n/a Pain Goal: Pain 4 or less Pain Plan: prn Tomorrow's Labs & Rationales: cbc bep
[2017-12-06 08:25] LABS: ABSOLUTE BASOPHIL COUNT 0 /CUMM (0.0-0.2); ABSOLUTE EOSINOPHIL COUNT 0.1 /CUMM (0.0-0.7); ABSOLUTE GRANULOCYTE CT 2.3 /CUMM (1.4-6.5); ABSOLUTE LYMPH COUNT 1.3 /CUMM (1.2-3.4); ABSOLUTE MONOCYTE COUNT 0.2 /CUMM (0.10-0.60); BASOPHIL % 0.4 % (0.0-2.0); EOSINOPHIL % 2.2 % (0-5); GRANULOCYTE % 59.5 % (42.2-75.2); HEMATOCRIT 40.8 % (37-47); MEAN CORPUSCULAR HGB 30.6 PG (27.0-31.0); MEAN CORPUSCULAR HGB CONC 33.6 G/DL (33.0-37.0); MEAN CORPUSCULAR VOLUME 91.2 FL (81.0-99.0); MEAN PLATELET VOLUME 10.8 FL (7.4-10.4); RBC DISTRIBUTION WIDTH 17.2 % (11.5-14.5); RED BLOOD CELL CT 4.47 /CUMM (4.20-5.40); WHITE BLOOD CELL COUNT 3.9 /CUMM (4.8-10.8)
[2017-12-06 09:33] LABS: PLATELET COUNT 31 /CUMM (130-400)
[2017-12-06 12:47] LABS: ABSOLUTE BASOPHIL COUNT 0 /CUMM (0.0-0.2); ABSOLUTE EOSINOPHIL COUNT 0.1 /CUMM (0.0-0.7); ABSOLUTE GRANULOCYTE CT 2.4 /CUMM (1.4-6.5); ABSOLUTE LYMPH COUNT 0.9 /CUMM (1.2-3.4); ABSOLUTE MONOCYTE COUNT 0.2 /CUMM (0.10-0.60); BASOPHIL % 0.4 % (0.0-2.0); EOSINOPHIL % 1.8 % (0-5); GRANULOCYTE % 68.5 % (42.2-75.2); HEMATOCRIT 39.2 % (37-47); MEAN CORPUSCULAR HGB 30.5 PG (27.0-31.0); MEAN CORPUSCULAR HGB CONC 33.4 G/DL (33.0-37.0); MEAN CORPUSCULAR VOLUME 91.4 FL (81.0-99.0); MEAN PLATELET VOLUME 10.8 FL (7.4-10.4); RBC DISTRIBUTION WIDTH 17.3 % (11.5-14.5); RED BLOOD CELL CT 4.29 /CUMM (4.20-5.40); WHITE BLOOD CELL COUNT 3.6 /CUMM (4.8-10.8)
[2017-12-06 13:18] LABS: PLATELET COUNT 37 /CUMM (130-400)
[2017-12-07] VITALS (10 sets, daily range): BP systolic 120–140; BP diastolic 80–98
--- NOTE | 2017-12-07 07:13 | PN- Housestaff ---
Sean CASTELLANO,[facility] 12/07/17 0712: Subjective Follow-up For: Alcohol detoxification Subjective: Patient seen and examined. Sitting comfortably. Having breakfast. Offers no complaint. No tremors no nystagmus. Alert oriented 3. CIWA have been running low. Update Patient was seen by the team in [facility] as well as quite emotional about selling her house and moving to an apartment. Discussed family issues as well. Patient wants to be discharged to [facility]. Will get delinquency prevention social worker involved Review of Systems Constitutional: Reports: see HPI. Objective Last 24 Hrs of Vital Signs/I&O Vital Signs Date Time Temp Pulse Resp B/P B/P Pulse O2 O2 Flow FiO2 Mean Ox Delivery Rate 12/07 1111 98.0 109 18 120/90 97 12/07 0826 98.3 93 18 132/98 12/07 0800 98.3 93 18 132/98 12/07 0636 98.3 93 18 132/98 96 Room Air 12/07 0215 98.7 103 18 136/96 97 Room Air 12/06 2200 98.5 101 18 136/92 96 Room Air 12/06 1800 98.2 99 20 124/88 98 Room Air 12/06 1438 98.7 102 18 128/96 97 Room Air Intake & Output 12/07 1600 12/07 0800 12/07 0000 Intake Total 200 430 Output Total Balance 200 430 Intake, IV 230 Intake, Oral 200 200 Physical Exam General Appearance: Alert, Oriented X3, Cooperative Cardiovascular: Normal S1, Normal S2 Lungs: Clear to Auscultation Abdomen: Normal Bowel Sounds, Soft, No Tenderness Neurological: Strength at 5/5 X4 Ext Other Physical Findings: Sclera eyes is mildly yellow no tremors, no nystagmus no ascites no spider jacek Current Medications: Current Medications Sig/Antonia Start time Last Medication Dose Route Stop Time Status Admin Amlodipine Besylate 5 MG DAILY 12/05 1000 AC 12/07 PO 0826 Cyanocobalamin/ 1 BAG DAILY 12/05 1000 AC 12/06 Thiamine/Pyridoxine IV 12/07 1759 0939 Dextrose/Water 1,000 ML Lorazepam 1 MG Q8 12/07 1400 AC PO Lorazepam 1.5 MG Q8 12/06 1400 DC 12/07 PO 0637 Lorazepam 0 Q1P PRN 12/04 2315 AC IV Magnesium Chloride 64 MG BID 12/07 1000 AC PO Magnesium Sulfate 1 GM Q2H 12/06 1000 DC 12/06 Dextrose/Water 100 ML IV 12/06 1359 2017 Melatonin 3 MG ONCE ONE 12/07 0245 DC 12/07 PO 12/07 245 0239 Melatonin 5 MG .STK-MED ONE 12/07 2211 DC PO 12/06 221 Melatonin 5 MG AT BEDTIME PRN 12/05 1900 AC 12/06 PO 2213 Multivitamins 1 TAB DAILY 12/08 1000 AC PO Ondansetron HCl 4 MG Q6P PRN 12/04 2345 AC IV Potassium Chloride 20 MEQ ONCE ONE 12/07 1000 DC PO 12/07 1001 Ramelteon 8 MG ONCE ONE 12/07 0215 DC PO 12/07 0216 Thiamine HCl 100 MG DAILY 12/08 1000 AC PO Last 24 Hrs of Lab/Juan Results Last 24 Hrs of Labs/Mics: Laboratory Tests 12/07/17 0810: Anion Gap 14, Estimated GFR > 60, BUN/Creatinine Ratio 16.0, Phosphorus 4.4, Magnesium 1.8, Total Bilirubin 1.7 H, Direct Bilirubin 0.5 H, AST 110 H, ALT 73 H, Alkaline Phosphatase 61, Total Protein 7.7, Albumin 4.5, CBC w Diff NO MAN DIFF REQ, RBC 4.46, MCV 90.9, MCH 31.0, MCHC 34.1, RDW 17.3 H, MPV 11.0 H, Gran % 59.3, Lymphocytes % 32.9, Monocytes % 4.8, Eosinophils % 2.6, Basophils % 0.4, Absolute Granulocytes 2.5, Absolute Lymphocytes 1.4, Absolute Monocytes 0.2 , Absolute Eosinophils 0.1, Absolute Basophils 0 12/06/17 1140: CBC w Diff NO MAN DIFF REQ, RBC 4.29, MCV 91.4, MCH 30.5, MCHC 33.4, RDW 17.3 H , MPV 10.8 H, Gran % 68.5, Lymphocytes % 24.1, Monocytes % 5.2, Eosinophils % 1.8, Basophils % 0.4, Absolute Granulocytes 2.4, Absolute Lymphocytes 0.9 L, Absolute Monocytes 0.2, Absolute Eosinophils 0.1, Absolute Basophils 0 Orders CIWA Score (last 24 hrs): 0 Assessment/Plan Assessment: 52-year-old female with a past medical history hypertension and alcohol dependence who presented [facility] the ER [facility] for acute withdrawal symptoms. Patient is currently being treated and evaluated for following #Alcohol detoxification -CIWA 0, has not required IV Ativan PRN for last 48h -Ativan decreased to 1 q8 -Continue by mouth multivitamin, thiamine and folate. -Was evaluated by psychiatry, plan for outpatient psychotherapy. Melatonin and trazodone at bedtime for sleep disturbance as per psych. Patient is currently getting Ativan we are going to hold off trazodone for now however we can use melatonin for sleep disturbances -Social work consulted #Electrolyte abnormalities Hypokalemia hypomagnesemia and hypophosphatemia likely secondary to alcohol abuse -Continue to monitor and replete -Hypokalemia and hypomagnesemia, hyper/hyperphosphatemia resolved #Leukopenia and thrombocytopenia -improving Bone marrow suppression in setting of alcohol abuse -Continue to monitor -Avoid DVT prophylaxis with Lovenox will use Alps only #Transaminitis-up trending Secondary to alcohol abuse -Continue to monitor -Patient does not have any now right upper quadrant tenderness on if worsens or any symptoms develop. Consider right upper quadrant ultrasound #Tachycardia-resolved Patient was initially started on clonidine overnight for tachycardia. Clonidine has been discontinued since his heart rate is much better this morning and was likely secondary to withdrawal symptoms. -We'll closely monitor heart rate. #Hypertension- Blood pressure well controlled now. Patient was started on clonidine initially for tachycardia and hypertension. It has been discontinued. -She has been restarted on home medication amlodipine 5 mg. -Can go up on amlodipine to 10 mg if continues to stay high. #Diet Heart healthy/DVT prophylaxis On Alps given thrombocytopenia/FC Problem List: 1. Alcohol withdrawal syndrome Pain Ratin Pain Location: n/a Pain Goal: Pain 4 or less Pain Plan: prn Tomorrow's Labs & Rationales: bep cbc Sherron CASTELLANO,Abelardo 12/07/17 1432: Attending MD Review Statement Attending Statement Attending MD Statement: examined this patient, discuss w/resident/PA/FULL CHARGE BOOKKEEPER, agreed w/resident/PA/FULL CHARGE BOOKKEEPER, reviewed EMR data (avail), discussed with nursing, discussed with case mgmt, amended to note Attending Assessment/Plan: Patient seen and examined. Lying comfortably in bed and not in any acute distress. No issues overnight reported by nursing staff. CIWA score has been consistently low. On examination she is not tremulous. She is alert and oriented 3 and conversant appropriately. She is very tearful regarding her current social status. She is requesting to be discharged to an inpatient alcohol rehabilitation facility. She will be evaluated by the delinquency prevention social worker later on today. We will taper her Ativan to 1 mg every 8 hours today. If she continues to do well clinically will taper further tomorrow. No need to repeat her serum chemistry or CBC in a.m. unless there is a change in her clinical status.
[2017-12-07 08:53] LABS: ABSOLUTE BASOPHIL COUNT 0 /CUMM (0.0-0.2); ABSOLUTE EOSINOPHIL COUNT 0.1 /CUMM (0.0-0.7); ABSOLUTE GRANULOCYTE CT 2.5 /CUMM (1.4-6.5); ABSOLUTE LYMPH COUNT 1.4 /CUMM (1.2-3.4); ABSOLUTE MONOCYTE COUNT 0.2 /CUMM (0.10-0.60); BASOPHIL % 0.4 % (0.0-2.0); EOSINOPHIL % 2.6 % (0-5); GRANULOCYTE % 59.3 % (42.2-75.2); HEMATOCRIT 40.6 % (37-47); MEAN CORPUSCULAR HGB CONC 34.1 G/DL (33.0-37.0); MEAN CORPUSCULAR VOLUME 90.9 FL (81.0-99.0); RBC DISTRIBUTION WIDTH 17.3 % (11.5-14.5); RED BLOOD CELL CT 4.46 /CUMM (4.20-5.40); WHITE BLOOD CELL COUNT 4.3 /CUMM (4.8-10.8)
[2017-12-07 10:09] LABS: PLATELET COUNT 43 /CUMM (130-400)
[2017-12-08 05:29] VITALS: BP 138/77
--- NOTE | 2017-12-08 07:14 | PN- Housestaff ---
Sean CASTELLANO,[facility] 12/08/17 0714: Subjective Follow-up For: Alcohol detox Subjective: Seen and examined. Resting comfortably. No complaints. Has been ambulating well. CIWA 0 Ativan taper. Will be discharged to [facility] tomorrow Review of Systems Constitutional: Reports: see HPI. Objective Last 24 Hrs of Vital Signs/I&O Vital Signs Date Time Temp Pulse Resp B/P B/P Pulse O2 O2 Flow FiO2 Mean Ox Delivery Rate 12/08 0529 98.2 96 20 138/77 95 12/07 2228 97.9 105 20 140/80 97 12/07 1800 97.9 98 18 120/80 12/07 1523 97.9 108 18 120/80 97 12/07 1400 98.3 93 18 132/98 12/07 1200 98.3 93 18 132/98 12/07 1111 98.0 109 18 120/90 97 Intake & Output 12/08 1600 12/08 0800 12/08 0000 Intake Total 200 300 Output Total Balance 200 300 Intake, Oral 200 300 Physical Exam General Appearance: Alert, Oriented X3, Cooperative Cardiovascular: Normal S1, Normal S2 Lungs: Clear to Auscultation Neurological: Normal Speech Current Medications: Current Medications Sig/Antonia Start time Last Medication Dose Route Stop Time Status Admin Amlodipine Besylate 5 MG DAILY 12/05 1000 AC 12/07 PO 0826 Cyanocobalamin/ 1 BAG DAILY 12/05 1000 DC 12/06 Thiamine/Pyridoxine IV 12/07 1759 0939 Dextrose/Water 1,000 ML Lorazepam 1 MG BID 12/08 2199 DC PO Lorazepam 0.5 MG BID 12/08 2200 AC PO 12/15 2159 Lorazepam 1 MG Q8 12/07 1400 DC 12/08 PO 0506 Lorazepam 0 Q1P PRN 12/04 2315 AC IV Magnesium Chloride 64 MG BID 12/07 1000 AC 12/07 PO 2104 Melatonin 5 MG .STK-MED ONE 12/07 2312 DC PO 12/07 2313 Melatonin 5 MG AT BEDTIME PRN 12/05 1900 AC 12/07 PO 2317 Multivitamins 1 TAB DAILY 12/08 1000 AC PO Ondansetron HCl 4 MG Q6P PRN 12/04 2345 AC IV Potassium Chloride 20 MEQ ONCE ONE 12/07 1130 DC 12/07 PO 12/07 1131 1321 Thiamine HCl 100 MG DAILY 12/08 1000 AC PO Assessment/Plan Assessment: 52-year-old female with a past medical history hypertension and alcohol dependence who presented [facility] the [facility] for acute withdrawal symptoms. Patient is currently being treated and evaluated for following #Alcohol detoxification -CIWA 0, has not required IV Ativan PRN for last 48h -Ativan decreased to 0.5 Q12 -Continue by mouth multivitamin, thiamine and folate. -Was evaluated by psychiatry, plan for outpatient psychotherapy. Melatonin and trazodone at bedtime for sleep disturbance as per psych. Patient is currently getting Ativan we are going to hold off trazodone for now however we can use melatonin for sleep disturbances -Social work consulted, going to [facility] #Electrolyte abnormalities Hypokalemia hypomagnesemia and hypophosphatemia likely secondary to alcohol abuse -Continue to monitor and replete -Hypokalemia and hypomagnesemia, hyper/hyperphosphatemia resolved #Leukopenia and thrombocytopenia -improving Bone marrow suppression in setting of alcohol abuse -Continue to monitor -Avoid DVT prophylaxis with Lovenox will use Alps only #Transaminitis-up trending Secondary to alcohol abuse -Continue to monitor -Patient does not have any now right upper quadrant tenderness on if worsens or any symptoms develop. Consider right upper quadrant ultrasound #Tachycardia-resolved Patient was initially started on clonidine overnight for tachycardia. Clonidine has been discontinued since his heart rate is much better this morning and was likely secondary to withdrawal symptoms. -We'll closely monitor heart rate. #Hypertension- Blood pressure well controlled now. Patient was started on clonidine initially for tachycardia and hypertension. It has been discontinued. -She has been restarted on home medication amlodipine 5 mg. -Can go up on amlodipine to 10 mg if continues to stay high. #Diet Heart healthy/DVT prophylaxis On Alps given thrombocytopenia/FC Problem List: 1. Alcohol withdrawal syndrome Pain Ratin Pain Location: n/a Pain Goal: Remain pain free Pain Plan: prn Tomorrow's Labs & Rationales: none Abelardo Siu MD 12/08/17 1424: Attending MD Review Statement Attending Statement Attending MD Statement: examined this patient, discuss w/resident/PA/STUDENT SUPPORT SERVICES DIRECTOR, agreed w/resident/PA/STUDENT SUPPORT SERVICES DIRECTOR, reviewed EMR data (avail), discussed with nursing, discussed with case mgmt, amended to note Attending Assessment/Plan: Patient seen and examined. She continues to do very well with very little CIWA scores. She is not requiring any extra doses of benzodiazepines. She appears to be in a much better spirits this morning. She was seen by the group social worker and arrangements have been made for discharge to inpatient alcohol detox program tomorrow. Her Ativan has been cut down to 2.5 mg twice daily today. She will receive a dose of Ativan 0.5 mg tomorrow morning after which a benzodiazepine therapy can be discontinued. If she remains clinically stable she will be discharged to the inpatient alcohol rehabilitation facility.
[2017-12-08 10:00] VITALS: BP 128/86
--- NOTE | 2017-12-08 10:18 | Discharge Summary ---
Visit Information Visit Dates Admission Date: 12/04/17 Discharge Date: 12/09/17 Hospital Course Course Attending Physician: Abelardo Siu MD Primary Care Physician: Patient Has No Primary Care Dr Hospital Course: The patient is 52-year-old female with past medical history of hypertension and alcohol dependencewho presented to [facility] requesting alcohol detoxification. Her last detox in March 2017 for almost 4 months. She stated that she relapsed around [place] time secondary to family problems and reported drinking vodka about 4-5 nights every week. She denied any past history of alcohol withdrawal seizures, ICU admissions, or any hx of intubation. Patient was admitted to general medicine floor and treated evaluated for alcohol detoxification. Her CIWA scores were monitored which ran in a lower range and she was started on Ativan. he has finished her Ativan taper. Her lab values were significant for multiple electrolyte abnormalities most likely secondary to alcohol abuse; including hypokalemia, hypomagnesemia and hypophosphatemia. Her BEP was monitored and her electrolytes were repleted accordingly. Patient also has thrombocytopenia and leukopenia most likely secondary to alcohol abuse causing bone marrow suppression. She also had transaminitis secondary to alcoholism. On presentation patient's blood pressure and heart rate was running high secondary to withdrawal. she received 0.1 mg of clonidine BID x 2 doses however later she was switched to her home dose of amlodipine 5 mg and her blood pressure and heart rate were within acceptable range. The patient does not have a PCP however referral has been provided. Patient has been evaluated by psychiatry who have recommended melatonin for insomia. -She will require monitoring of CBCs and BEP by her PCP -she will also require monitoring of LFTs if they continue to trend up she will probably benefit from right upper quadrant ultrasound -She has finished her Ativan taper and is being discharged on thiamine, multivitamin and folic acid supplements. The patient is going to be discharged from hospital to [facility] for further management of alcohol abuse disorder. Patient was full code during her stay in the hospital Allergies: Coded Allergies: No Known Allergies (12/04/17) Disposition Summary Disposition Principal Diagnosis: alcohol detoxification Additional Diagnosis: Transaminitis Discharge Disposition: home health services Discharge Instructions General Discharge Information Code Status: Full Code Patient's Diet: heart healthy Patient's Activity: as tolerated Follow-Up Instructions/Appts: -Please follow-up with PCP after discharge You have been given a referral for a primary care doctor Please take supplements as directed Medications at Discharge Discharge Medications: Continue taking these medications: Amlodipine Besylate (Amlodipine Besylate) 5 MG TABLET 1 Tablet ORAL DAILY Qty = 30 Comments: Last Taken: 12/09/17 Time: 0950 AM Start taking the following new medications: Folic Acid (Folic Acid) 1 MG TABLET 1 Tablet ORAL DAILY Qty = 30 No Refills Instructions: . Comments: Last Taken: 12/09/17 Time: 0950 AM Thiamine HCl (Vitamin B-1) 100 MG TABLET 1 Tablet ORAL DAILY Qty = 30 No Refills Instructions: . Comments: Last Taken: 12/09/17 Time: 0950 AM Multivitamin (One Daily Multivitamin) 1 EACH TABLET 1 Tablet ORAL DAILY Qty = 30 No Refills Instructions: . Comments: Last Taken: 12/09/17 Time: 0950 AM Melatonin (Melatonin) 5 MG TABLET 1 Tablet ORAL AT BEDTIME as needed for INSOMNIA Qty = 30 No Refills Comments: Last Taken: 12/08/17 Time: 2200 Copies To: Janneth CASTELLANO,Pranav Sotomayor MD,Hunter Rodriguez MD Review Statement Documenting Attending: Abelardo Siu MD
[2017-12-08] MEDS ORDERED: FOLIC ACID1 M1 PO (10:50)
[2017-12-08] MEDS ORDERED: MELATONIN5 M7 PO (10:50)
[2017-12-08] MEDS ORDERED: ONE DAILY MULT1 EAC2 PO (10:50)
[2017-12-08] MEDS ORDERED: VITAMIN B-1100 MG PO (10:50)
--- NOTE | 2017-12-08 10:53 | Patient Discharge Instructions ---
Discharge Instructions General Discharge Information You were seen/treated for: alcohol detoxification Special Instructions: Please follow-up with PCP after discharge You have been given a referral for a primary care doctor Please take supplements as directed Diet Recommended Diet: Heart Healthy Activity Full Activity/No Limits: Yes Acute Coronary Syndrome Inclusion Criteria At DC or during hospital stay patient has or had the following: ACS DIAGNOSIS No Discharge Core Measures Meds if any: Prescribed or Continued at Discharge Meds if any: NOT Prescribed or Continued at Discharge Congestive Heart Failure Inclusion Criteria At DC or during hospital stay patient has or had the following: CHF DIAGNOSIS No Discharge Core Measures Meds if any: Prescribed or Continued at Discharge Meds if any: NOT Prescribed or Continued at Discharge Cerebrovascular accident Inclusion Criteria At DC or during hospital stay patient has or had the following: CVA/TIA Diagnosis No Discharge Core Measures Meds if any: Prescribed or Continued at Discharge Meds if any: NOT Prescribed or Continued at Discharge Venous thromboembolism Inclusion Criteria VTE Diagnosis No VTE Type NONE VTE Confirmed by (Test) NONE Discharge Core Measures - Per Current guidelines, there needs to be overlap - treatment for the first 5 days of Warfarin therapy. - If discharged on Warfarin prior to 5 days of - overlap therapy, the patient will need to be - assessed for post discharge needs including - *Post discharge parental anticoagulation - *Warfarin and/or parental anticoagulation education - *Follow up date to check INR post discharge At least 5 days overlap therapy as Inpatient No Meds if any: Prescribed or Continued at Discharge Note: Overlap Therapy is Warfarin and Anticoagulant Meds if any: NOT Prescribed or Continued at Discharge
[2017-12-08 13:25] VITALS: BP 120/80
[2017-12-08 14:00] VITALS: BP 120/80
[2017-12-08 21:38] VITALS: BP 138/90
[2017-12-09 02:00] VITALS: BP 120/90
[2017-12-09 02:20] VITALS: BP 120/90
[2017-12-09 06:00] VITALS: BP 118/80
[2017-12-09 06:26] VITALS: BP 118/80
--- NOTE | 2017-12-09 07:17 | PN- Housestaff ---
Sean CASTELLANO,Kath 12/09/17 0716: Subjective Follow-up For: Alcohol detoxification and withdrawal Subjective: Seen and examined.walking. Just came out of the shower. does not have any complaints. Ativan taper complete. Stable to be discharged today. Review of Systems Constitutional: Reports: see HPI. Objective Last 24 Hrs of Vital Signs/I&O Vital Signs Date Time Temp Pulse Resp B/P B/P Pulse O2 O2 Flow FiO2 Mean Ox Delivery Rate 12/09 06 98.2 81 16 118/80 98 Room Air 12/09 0600 98.2 81 16 118/80 12/09 0220 97.8 76 20 120/90 95 Room Air 12/09 0200 97.8 76 16 120/90 12/08 2138 98.3 107 18 138/90 98 12/08 1400 98.0 98 20 120/80 12/08 1325 98.0 98 20 120/80 98 Room Air 12/08 1024 100 128/86 12/08 1000 97.7 100 18 128/86 Intake & Output 12/09 1600 12/09 0800 12/09 0000 Intake Total 600 900 Output Total 300 Balance 300 900 Intake, Oral 600 900 Output, Urine 300 Physical Exam General Appearance: Alert, Oriented X3, No Acute Distress Cardiovascular: Normal S1, Normal S2 Lungs: Clear to Auscultation Abdomen: Soft Neurological: Normal Speech Current Medications: Current Medications Sig/Antonia Start time Last Medication Dose Route Stop Time Status Admin Amlodipine Besylate 5 MG DAILY 12/05 1000 AC 12/08 PO 1024 Lorazepam 0.5 MG DAILY 12/09 1000 AC PO 12/09 1001 Lorazepam 1 MG BID 12/08 2199 DC PO Lorazepam 0.5 MG BID 12/08 2200 DC 12/08 PO 12/15 2159 2124 Lorazepam 0 Q1P PRN 12/04 2315 DC IV Magnesium Chloride 64 MG BID 12/07 1000 AC 12/08 PO 2124 Melatonin 5 MG ONCE ONE 12/09 0200 DC 12/09 PO 12/09 020 0209 Melatonin 5 MG .STK-MED ONE 12/08 2324 DC PO 12/08 2325 Melatonin 5 MG AT BEDTIME PRN 12/05 1900 AC 12/08 PO 2325 Multivitamins 1 TAB DAILY 12/08 1000 AC 12/08 PO 1023 Ondansetron HCl 4 MG Q6P PRN 12/04 2345 DC IV Patient Medication 1 ED ONE ONE 12/08 1415 DC 12/08 Teaching ED 12/08 1416 1541 Thiamine HCl 100 MG DAILY 12/08 1000 AC 12/08 PO 1023 Assessment/Plan Assessment: 52-year-old female with a past medical history hypertension and alcohol dependence who presented [facility] the [facility] for acute withdrawal symptoms. Patient is currently being treated and evaluated for following #Alcohol detoxification -CIWA 0, has not required IV Ativan PRN for last 48h -Ativan decreased to 0.5 ONCE. Ativan taper complete -Continue by mouth multivitamin, thiamine and folate. -Was evaluated by psychiatry, plan for outpatient psychotherapy. Melatonin and trazodone at bedtime for sleep disturbance as per psych. Patient is currently getting Ativan we are going to hold off trazodone for now however we can use melatonin for sleep disturbances -Social work consulted, going to [facility] #Electrolyte abnormalities Hypokalemia hypomagnesemia and hypophosphatemia likely secondary to alcohol abuse -Continue to monitor and replete -Hypokalemia and hypomagnesemia, hyper/hyperphosphatemia resolved #Leukopenia and thrombocytopenia -improving Bone marrow suppression in setting of alcohol abuse -Continue to monitor -Avoid DVT prophylaxis with Lovenox will use Alps only #Transaminitis-up trending Secondary to alcohol abuse -Continue to monitor -Patient does not have any now right upper quadrant tenderness on if worsens or any symptoms develop. Consider right upper quadrant ultrasound #Tachycardia-resolved Patient was initially started on clonidine overnight for tachycardia. Clonidine has been discontinued since his heart rate is much better this morning and was likely secondary to withdrawal symptoms. -We'll closely monitor heart rate. #Hypertension- Blood pressure well controlled now. Patient was started on clonidine initially for tachycardia and hypertension. It has been discontinued. -She has been restarted on home medication amlodipine 5 mg. -Can go up on amlodipine to 10 mg if continues to stay high. #Diet Heart healthy/DVT prophylaxis On Alps given thrombocytopenia/FC Problem List: 1. Alcohol withdrawal syndrome Pain Ratin Pain Location: N/A Pain Goal: Pain 4 or less Pain Plan: PRN Tomorrow's Labs & Rationales: NONE Abelardo Siu MD 12/09/17 1148: Attending MD Review Statement Attending Statement Attending MD Statement: examined this patient, discuss w/resident/PA/BUILDING RIGGER, agreed w/resident/PA/BUILDING RIGGER, reviewed EMR data (avail), discussed with nursing, discussed with case mgmt, amended to note Attending Assessment/Plan: Patient seen and examined. Resting comfortably not in any acute distress. No issues overnight. No new complaints. She is medically stable to be discharged today. She will be going to an inpatient alcohol rehabilitation center for further care today. She has received her last dose of benzodiazepines are no longer requires this. She appears very motivated and hopefully will do well With abstaining from further alcohol use.
[2017-12-09] MEDS ORDERED: ONE DAILY MULT1 EAC2 PO (08:07)
[2017-12-09] MEDS ORDERED: FOLIC ACID1 M1 PO (08:07)
[2017-12-09] MEDS ORDERED: VITAMIN B-1100 MG PO (08:07)
[2017-12-09 10:00] VITALS: BP 140/80
== END 2017-12-09 11:15 | DRG 775 ==
LOC: ERH 13:32 → 2NA 20:07 → ERHI 20:07 → CANRESERV 12-05 01:46 → ENRESERVDT 12-05 01:46 → ENRESERV 12-05 01:46 → ENRESERVTM 12-05 01:46 → ENRESERV 12-05 01:52 → 2NA 12-05 02:29 → ENPENDDIS 12-09 09:25 → 2NA 12-09 11:15
PROVIDERS: Emergency Medicine; Internal Medicine; Internal Medicine Infectious Disease
DX: F10.239 Alcohol dependence with withdrawal, unspecified (principal); Y90.2 Blood alcohol level of 40-59 mg/100 ml; I10 Essential (primary) hypertension; E87.6 Hypokalemia; D69.6 Thrombocytopenia, unspecified; E83.42 Hypomagnesemia; E83.39 Other disorders of phosphorus metabolism; R00.0 Tachycardia, unspecified; F32.9 Major depressive disorder, single episode, unspecified; R74.0 Nonspecific elevation of levels of transaminase and lactic acid dehydrogenase [LDH]; D72.818 Other decreased white blood cell count; F41.9 Anxiety disorder, unspecified; D72.819 Decreased white blood cell count, unspecified
CPT/HCPCS: 2NAP; ERO; 36415; 36592; 80307; 81001; 82436; G0480; J2405; J7060